=== PATIENT | female | born 1970 | race Caucasian/White ===

== ENCOUNTER → 2017-06-27 | Outpatient (CLI) | payer MEDICARE ==
[~2017-06-27] MED LIST: VITAMIN C1000 MG PO
== END | disposition home or self-care (01) ==
LOC: CDC 11:20
DX: Z01.810 Encounter for preprocedural cardiovascular examination (principal)
CPT/HCPCS: 93000

== ENCOUNTER 2017-07-05 08:56 | Day surgery (SDC) | payer MEDICARE ==
[~2017-07-05] VITALS: Ht 162.6 cm; Wt 81.0 kg
[2017-07-05 09:24] VITALS: BP 134/77
[2017-07-05] MEDS ORDERED: PROBIOTIC1 EAC1 PO (09:43)
[2017-07-05] MEDS ORDERED: IBUPROFEN800 MG PO (11:12)
[2017-07-05] MEDS ORDERED: TRAMADOL HCL50 MG PO (11:12)
[2017-07-05 12:45] VITALS: BP 114/69
[2017-07-05 13:47] VITALS: BP 108/52
== END 2017-07-05 13:48 | disposition home or self-care (01) ==
LOC: SDC
DX: N92.0 Excessive and frequent menstruation with regular cycle (principal); I10 Essential (primary) hypertension; K21.9 Gastro-esophageal reflux disease without esophagitis; Z85.818 Personal history of malignant neoplasm of other sites of lip, oral cavity, and pharynx
CPT/HCPCS: 88305; J0690; J1100; J1885; J2250; J2405; J2765; J3010; Q0175